=== PATIENT | female | born 1955 | race Caucasian/White ===

== ENCOUNTER 2017-11-17 16:53 | Emergency (ER) | payer BC, OTHER ==
[~2017-11-17] VITALS: Ht 170.2 cm; Wt 95.0 kg
[2017-11-17 16:57] VITALS: BP 128/82
[2017-11-17 18:16] LABS: CULTURE INDICATED? YES; MICROSCOPIC INDICATED
== END 2017-11-17 18:38 | disposition home or self-care (01) ==
LOC: ED 18:32
DX: N30.90 Cystitis, unspecified without hematuria (principal); I10 Essential (primary) hypertension; E03.9 Hypothyroidism, unspecified
CPT/HCPCS: 81001; 87077; 87086; 87147; 87186; 99284